=== PATIENT | male | born 1975 | race Two or more races ===

== ENCOUNTER 2019-08-09 18:19 | Emergency (ER) | payer MEDICAID, OTHER ==
[~2019-08-09] VITALS: Ht 182.9 cm; Wt 110.7 kg
[2019-08-09 19:18] VITALS: BP 139/91
== END 2019-08-10 01:50 | disposition left against medical advice (07) ==
LOC: ER 18:25
DX: M25.532 Pain in left wrist (principal); Z53.21 Procedure and treatment not carried out due to patient leaving prior to being seen by health care provider; W19.XXXA Unspecified fall, initial encounter; Y93.89 Activity, other specified; Y99.8 Other external cause status; Y92.89 Other specified places as the place of occurrence of the external cause
CPT/HCPCS: 73080; 73110

== ENCOUNTER 2020-11-08 08:49 | Emergency (ER) | payer MEDICAID ==
[~2020-11-08] VITALS: Ht 167.6 cm; Wt 63.5 kg
[2020-11-08 08:55] VITALS: BP 143/98
[2020-11-08] MEDS ORDERED: IBUPROFEN 800 MG TAB PO ONE (10:00)
[2020-11-08] MEDS ORDERED: cefTRIAXone SOD 1,000 MG VL IM ONE (10:00)
== END 2020-11-08 10:42 | disposition home or self-care (01) ==
LOC: ER 08:49
DX: N45.1 Epididymitis (principal); N43.3 Hydrocele, unspecified
CPT/HCPCS: 76870; 99284; J0696

== ENCOUNTER 2023-01-06 22:29 | Emergency (ER) | payer MEDICAID ==
[~2023-01-06] VITALS: Ht 182.9 cm; Wt 124.7 kg
[2023-01-06 23:35] VITALS: BP 142/86
[2023-01-07] MEDS ORDERED: AMOX500T3 PO (02:08)
[2023-01-07] MEDS ORDERED: PRED20TA2 PO (02:08)
[2023-01-07] MEDS ORDERED: DexAMETHasone SOD PHOS 10MG/1ML VIAL INJ IM ONE (02:15)
== END 2023-01-07 02:40 | disposition home or self-care (01) ==
LOC: ER 22:29
DX: K12.2 Cellulitis and abscess of mouth (principal)
CPT/HCPCS: 96372; 99283; J1100